=== PATIENT | male | born 1950 | race Caucasian/White ===

== ENCOUNTER → 2018-06-15 10:45 | Outpatient (CLI) | payer MEDICARE, OTHER, SELFPAY ==
[2018-06-15 12:24] LABS: Absolute Lymphocyte Count 1.63 X10^3/ul (0.83-4.51); Absolute Neutrophil Count 3.6 X10^3/uL (2.0-7.7); Basophil# 0.01 X10^3/uL; Basophil% 0.2 % (0-1); Eosinophils% 3.5 % (0-5); Hematocrit 46.7 % (40-54); Hemoglobin 15.7 g/dl (13.0-16.5); Lymphocyte # 1.63 X10^3/ul (4.0); Lymphocyte % 28.2 % (19-41); Mean Corp Hgb Conc 33.6 g/gl (32-36); Mean Corpuscular Hgb 31.7 pg (27.0-32.0); Mean Corpuscular Volume 94.2 fL (80-94); Mean Platelet Vol. 10.8 fl (6.2-12.0); Monocyte# 0.28 X10^3/uL; Monocyte% 4.9 % (0-10); Neutrophil # 3.64 X10^3/uL (2.7-7.7); Platelet Count 182 K/mm3 (150-450); RBC Distribution Width CV 13.9 % (11.6-14.6); RBC Distribution Width SD 47.5 fl (35.1-43.9); Red Blood Count 4.96 M/mm3 (4.6-6.2); White Blood Count 5.8 K/mm3 (4.4-11.0)
[2018-06-15 12:31] LABS: POSITIVE COUNT NO; POSITIVE DIFFERENTIAL NO; POSITIVE MORPHOLOGY NO
[2018-06-15 12:58] LABS: Vitamin B12 1128 pg/mL (211-911); Vitamin D,25 Hydroxy 51.3 ng/mL (29.95-100.01)
[2018-06-15 13:13] LABS: ALB/GLOB Ratio 0.9 RATIO (0.9-2.4); AST(SGOT) 25 U/L (15-37); Alanine Aminotransfer ALT/SGPT 47 U/L (16-61); Albumin, Serum 3.7 g/dL (3.2-5.0); Alkaline Phosphatase 59 U/L (45-117); Anion Gap 5 (5-15); BUN 25 mg/dL (7-18); BUN/Creat Ratio 31.1 RATIO (10-20); Calcium,Total 8.7 mg/dL (8.5-10.1); Chloride 106 mmol/L (98-107); Cholesterol 209 mg/dL (200); EST Glomerular Filtration Rate 102 mL/min (>60); Est Glom Filt Rate - Afr Amer 123 mL/min (>60); Globulin 3.9 g/dL (2.2-4.2); Glucose 93 mg/dL (74-106); High Density Lipoprotein 62 mg/dL; Potassium 4.3 mmol/L (3.5-5.1); Protein, Total 7.6 g/dL (6.4-8.2); Sodium Level 138 mmol/L (136-145); T4 Free Direct 1.02 ng/dL (0.76-1.46); Thyroid Stim Hormone (TSH) 2.02 uIU/mL (0.358-3.74); Triglycerides 61 mg/dL; Very Low Density Lipoprotein 12 mg/dL (5-40)
[2018-06-20 10:19] LABS: Anti-Thyroglobulin AB < 1.0 IU/mL (0.0-0.9); Thyroglobulin, Serum Qt. 6.6 ng/mL (1.4-29.2); Thyroid Peroxidase AB 6 IU/mL (0-34); Vitamin B1, Thiamine 126.7 nmol/L (66.5-200.0)
== END ==
PROVIDERS: Family Provider Family Medicine; PCP Family Medicine; Visit Provider Family Medicine
DX: E03.9 Hypothyroidism, unspecified (principal); E53.9 Vitamin B deficiency, unspecified; E55.9 Vitamin D deficiency, unspecified
CPT/HCPCS: 36415; 80053; 80061; 82306; 82607; 84425; 84432; 84439; 84443; 85025; 86376; 86800

== ENCOUNTER → 2018-06-26 09:55 | Outpatient (CLI) | payer MEDICARE, OTHER, SELFPAY ==
[2018-06-26 13:08] LABS: AST(SGOT) 20 U/L (15-37); Alanine Aminotransfer ALT/SGPT 45 U/L (16-61); Albumin, Serum 3.5 g/dL (3.2-5.0); Alkaline Phosphatase 54 U/L (45-117); Bilirubin, Direct 0.14 mg/dL (0.00-0.30); Globulin 3.4 g/dL (2.2-4.2); Protein, Total 6.9 g/dL (6.4-8.2)
== END ==
PROVIDERS: Family Provider Family Medicine; PCP Family Medicine; Visit Provider Family Medicine
DX: E80.6 Other disorders of bilirubin metabolism (principal)
CPT/HCPCS: 36415; 80076

== ENCOUNTER → 2018-07-27 10:03 | Outpatient (CLI) | payer MEDICARE, OTHER, SELFPAY ==
[2018-07-27 12:26] LABS: PSA,Total - Annual Screen 4.39 ng/mL (0.00-4.00)
== END ==
PROVIDERS: Family Provider Family Medicine; PCP Family Medicine; Visit Provider Family Medicine
DX: Z12.5 Encounter for screening for malignant neoplasm of prostate (principal)
CPT/HCPCS: 36415; 84153; G0103

== ENCOUNTER → 2019-01-21 10:28 | Outpatient (CLI) | payer MEDICARE, OTHER, SELFPAY ==
[2019-01-21 13:17] LABS: T4 Free Direct 1.09 ng/dL (0.76-1.46); Thyroid Stim Hormone (TSH) 2.79 uIU/mL (0.358-3.74)
[2019-01-21 13:25] LABS: Vitamin B12 931 pg/mL (211-911); Vitamin D,25 Hydroxy 40.8 ng/mL (29.95-100.01)
[2019-01-24 15:37] LABS: Vitamin B1, Thiamine 142.2 nmol/L (66.5-200.0)
== END ==
PROVIDERS: Family Provider Family Medicine; PCP Family Medicine; Referring Provider Family Medicine; Visit Provider Family Medicine
DX: E03.9 Hypothyroidism, unspecified (principal); E55.9 Vitamin D deficiency, unspecified; E53.9 Vitamin B deficiency, unspecified
CPT/HCPCS: 36415; 82306; 82607; 84425; 84439; 84443

== ENCOUNTER → 2019-02-13 08:28 | Outpatient (CLI) | payer MEDICARE, OTHER, SELFPAY ==
[2019-02-13 10:34] LABS: AST(SGOT) 21 U/L (15-37); Alanine Aminotransfer ALT/SGPT 47 U/L (16-61); Albumin, Serum 3.3 g/dL (3.2-5.0); Alkaline Phosphatase 57 U/L (45-117); Bilirubin, Direct 0.11 mg/dL (0.00-0.30); Globulin 3.4 g/dL (2.2-4.2); PSA,Total- Diagnostic 4.83 ng/mL (0.0-4.0); Protein, Total 6.7 g/dL (6.4-8.2)
== END ==
PROVIDERS: Family Provider Family Medicine; PCP Family Medicine; Visit Provider Nurse Practitioner Adult Health
DX: R97.20 Elevated prostate specific antigen [PSA] (principal); Z51.81 Encounter for therapeutic drug level monitoring
CPT/HCPCS: 36415; 80076; 84153

== ENCOUNTER → 2019-02-21 14:53 | Outpatient (CLI) | payer MEDICARE, OTHER, SELFPAY ==
--- NOTE | 2019-02-21 15:00 | RAD_ITS ---
STUDY: X-RAY CHEST REASON FOR EXAM: Male, 68 years old. Cough. TECHNIQUE: Frontal and lateral views of the chest. COMPARISON: None. FINDINGS: The lungs are clear and expanded. There is no demonstrated pleural abnormality. Normal size heart. Normal mediastinum and tessa. Normal visualized pulmonary arteries. Normal visualized aortic arch and descending thoracic aorta. There are diffuse degenerative changes of the visualized thoracic spine. Normal visualized ribs, clavicles, and shoulders. There is no demonstrated abnormality of the visualized soft tissue structures of the upper abdomen. RAD/Chest PA and Lateral IMPRESSION: No acute chest disease. Electronically Signed: Ovi Roach MD at 22:59 EDT , Service support ,
== END ==
PROVIDERS: Family Provider Family Medicine; PCP Family Medicine; Referring Provider Family Medicine; Visit Provider Family Medicine
DX: J18.9 Pneumonia, unspecified organism (principal)
CPT/HCPCS: 71046

== ENCOUNTER → 2019-04-22 09:11 | Outpatient (CLI) | payer MEDICARE, OTHER, SELFPAY ==
[2019-04-22 10:47] LABS: T4 Free Direct 0.99 ng/dL (0.76-1.46); Thyroid Stim Hormone (TSH) 3.13 uIU/mL (0.358-3.74)
== END ==
PROVIDERS: Family Provider Family Medicine; PCP Family Medicine; Visit Provider Family Medicine
DX: E03.9 Hypothyroidism, unspecified (principal)
CPT/HCPCS: 36415; 84439; 84443

== ENCOUNTER → 2019-08-20 10:47 | Outpatient (CLI) | payer MEDICARE, OTHER, SELFPAY ==
[2019-08-20 12:49] LABS: PSA,Total- Diagnostic 4.49 ng/mL (0.0-4.0)
== END ==
PROVIDERS: Family Provider Family Medicine; PCP Family Medicine; Visit Provider Nurse Practitioner Adult Health
DX: R97.20 Elevated prostate specific antigen [PSA] (principal)
CPT/HCPCS: 36415; 84153

== ENCOUNTER → 2019-09-11 12:09 | Outpatient (CLI) | payer MEDICARE, OTHER, SELFPAY ==
[2019-09-12 15:13] LABS: PSA, Free 0.95 ng/mL; PSA, Free % 20.2 % (.); PSA, Total Ultrasensitive 4.7 ng/mL (0.0-4.0)
== END ==
PROVIDERS: Family Provider Family Medicine; PCP Family Medicine; Visit Provider Nurse Practitioner Adult Health
DX: R97.20 Elevated prostate specific antigen [PSA] (principal)
CPT/HCPCS: 84153; 84154

== ENCOUNTER → 2019-10-14 08:21 | Outpatient (CLI) | payer MEDICARE, OTHER, SELFPAY ==
[2019-10-14 10:28] LABS: Vitamin B12 1071 pg/mL (211-911); Vitamin D,25 Hydroxy 49.1 ng/mL
[2019-10-14 10:37] LABS: Thyroid Stim Hormone (TSH) 5.99 uIU/mL (0.358-3.74)
[2019-10-18 11:53] LABS: Vitamin B1, Thiamine 122.6 nmol/L (66.5-200.0)
== END ==
PROVIDERS: PCP Family Medicine; Referring Provider Family Medicine; Visit Provider Family Medicine
DX: E53.9 Vitamin B deficiency, unspecified (principal); E03.9 Hypothyroidism, unspecified; E55.9 Vitamin D deficiency, unspecified
CPT/HCPCS: 36415; 82306; 82607; 84425; 84443

== ENCOUNTER → 2020-01-13 08:54 | Outpatient (CLI) | payer MEDICARE, OTHER, SELFPAY ==
[2020-01-13 12:38] LABS: T4 Free Direct 0.86 ng/dL (0.76-1.46); Thyroid Stim Hormone (TSH) 3.38 uIU/mL (0.358-3.74)
[2020-01-15 05:33] LABS: Thyroglobulin Antibody < 1.0 IU/mL (0.0-0.9); Thyroid Peroxidase AB < 9 IU/mL (0-34)
== END ==
PROVIDERS: PCP Family Medicine; Referring Provider Family Medicine; Visit Provider Family Medicine
DX: E03.9 Hypothyroidism, unspecified (principal)
CPT/HCPCS: 36415; 84439; 84443; 86376; 86800

== ENCOUNTER → 2020-07-13 08:48 | Outpatient (CLI) | payer MEDICARE, OTHER, SELFPAY ==
[2020-07-13 11:13] LABS: Thyroid Stim Hormone (TSH) 3.98 uIU/mL (0.358-3.74)
[2020-07-13 11:30] LABS: Vitamin B12 797 pg/mL (211-911); Vitamin D,25 Hydroxy 51.3 ng/mL
== END ==
PROVIDERS: PCP Family Medicine; Referring Provider Family Medicine; Visit Provider Family Medicine
DX: E03.9 Hypothyroidism, unspecified (principal); E53.9 Vitamin B deficiency, unspecified; E55.9 Vitamin D deficiency, unspecified
CPT/HCPCS: 36415; 82306; 82607; 84425; 84439; 84443

== ENCOUNTER 2020-10-15 14:42 | Outpatient (RCR) | payer MEDICARE, OTHER, SELFPAY ==
[2020-10-15] MEDS: COVID-19 VACC, MRNA(PFIZER)/PF 30 MCG/0.3 ML SYRINGE IM (18:01)
[2020-11-05] MEDS: COVID-19 VACC, MRNA(PFIZER)/PF 30 MCG/0.3 ML SYRINGE IM (17:51)
== END 2021-01-12 23:59 ==
LOC: IMMUN 14:42
PROVIDERS: PCP Family Medicine; Referring Provider Family Medicine; Visit Provider Family Medicine
DX: Z23 Encounter for immunization (principal)
CPT/HCPCS: 0001A; 0002A; 91300

== ENCOUNTER → 2021-01-22 10:20 | Outpatient (CLI) | payer MEDICARE, OTHER, SELFPAY ==
[2021-01-22 15:33] LABS: Vitamin B12 1037 pg/mL (211-911); Vitamin D,25 Hydroxy 69.2 ng/mL
[2021-01-22 15:42] LABS: T4 Free Direct 0.89 ng/dL (0.76-1.46); Thyroid Stim Hormone (TSH) 2.36 uIU/mL (0.358-3.74)
== END ==
PROVIDERS: PCP Family Medicine; Referring Provider Family Medicine; Visit Provider Family Medicine
DX: E03.9 Hypothyroidism, unspecified (principal); E55.9 Vitamin D deficiency, unspecified; E53.9 Vitamin B deficiency, unspecified
CPT/HCPCS: 36415; 82306; 82607; 84439; 84443

== ENCOUNTER 2021-08-17 09:31 | Outpatient (CLI) | payer BC, SELFPAY ==
[2021-08-17 10:06] LABS: Absolute Lymphocyte Count 1.35 X10^3/uL (0.83-4.51); Absolute Neutrophil Count 6.1 X10^3/uL (2.0-7.7); Basophil# 0.03 X10^3/uL; Basophil% 0.4 % (0-1); Eosinophil# 0.33 X10^3/uL; Hematocrit 44.6 % (40-54); Hemoglobin 14.9 g/dL (13.0-16.5); Lymphocyte # 1.35 X10^3/ul (0.83-4.51); Lymphocyte % 16.2 % (19-41); Mean Corp Hgb Conc 33.4 g/dL (32-36); Mean Corpuscular Hgb 30.8 pg (27.0-32.0); Mean Corpuscular Volume 92.1 fL (80-94); Mean Platelet Vol. 10.3 fl (6.2-12.0); Monocyte# 0.46 X10^3/uL; Monocyte% 5.5 % (0-10); NRBC Flagged by Analyzer 0 % (0-5); Neutrophil # 6.13 X10^3/uL (2.7-7.7); Neutrophil % 73.5 % (47-70); Platelet Count 223 K/mm3 (150-450); RBC Distribution Width CV 13.1 % (11.6-14.6); RBC Distribution Width SD 44.2 fl (35.1-43.9); Red Blood Count 4.84 M/mm3 (4.6-6.2); White Blood Count 8.3 K/mm3 (4.4-11.0)
[2021-08-17 10:43] LABS: Vitamin B12 1249 pg/mL (211-911); Vitamin D,25 Hydroxy 54.1 ng/mL
[2021-08-17 10:49] LABS: ALB/GLOB Ratio 0.7 RATIO (0.9-2.4); AST(SGOT) 20 U/L (15-37); Alanine Aminotransfer ALT/SGPT 40 U/L (16-61); Alkaline Phosphatase 74 U/L (45-117); Anion Gap 5 (5-15); BUN 28 mg/dL (7-18); BUN/Creat Ratio 32.7 RATIO (10-20); Calcium,Total 8.9 mg/dL (8.5-10.1); Chloride 110 mmol/L (98-107); Creatinine, Serum 0.86 mg/dL (0.70-1.30); EST Glomerular Filtration Rate 94 mL/min (>60); Est Glom Filt Rate - Afr Amer 114 mL/min (>60); Globulin 4.3 g/dL (2.2-4.2); Glucose 103 mg/dL (74-106); Potassium 4.2 mmol/L (3.5-5.1); Protein, Total 7.3 g/dL (6.4-8.2); Sodium Level 140 mmol/L (136-145); Thyroid Stim Hormone (TSH) 3.71 uIU/mL (0.358-3.74)
[2021-08-18 18:06] LABS: Anti-Thyroglobulin AB < 1.0 IU/mL (0.0-0.9); Thyroglobulin, Serum Qt. 10.5 ng/mL (1.4-29.2); Thyroid Peroxidase AB < 8 IU/mL (0-34)
== END 2021-08-17 23:59 | disposition home or self-care (01) ==
LOC: MFPLAB 09:33
PROVIDERS: PCP Family Medicine; Referring Provider Family Medicine; Visit Provider Family Medicine
DX: E03.9 Hypothyroidism, unspecified (principal); E53.9 Vitamin B deficiency, unspecified; E55.9 Vitamin D deficiency, unspecified
CPT/HCPCS: 36415; 80053; 82306; 82607; 84432; 84439; 84443; 85025; 86376; 86800

== ENCOUNTER 2021-09-24 14:04 | Outpatient (CLI) | payer BC, SELFPAY ==
--- NOTE | 2021-09-24 14:07 | RAD_ITS ---
EXAM: XR ABDOMEN, 2 VIEWS AND XR CHEST, 1 VIEW CLINICAL INDICATION: ABDOMINAL PAIN TECHNIQUE: Frontal view of the chest, frontal view of the abdomen/pelvis and upright or decubitus view of the abdomen. This report was created using [employer] report [employer] technology. COMPARISON: None. FINDINGS: CHEST: LUNGS AND PLEURAL SPACES: Unremarkable. No consolidation or edema. No pneumothorax. No effusion. HEART: Unremarkable. Cardiac silhouette not enlarged. MEDIASTINUM: Central airways and mediastinal contour are unremarkable. ABDOMEN: INTRAPERITONEAL SPACE: No free air. GASTROINTESTINAL TRACT: Unremarkable. Non-obstructive. No bowel or stomach distention. ORGANS: Calcification overlying the left renal parenchymal outline may be a left renal stone. This measures 3 mm. There are calcified phleboliths in the pelvis. This makes differentiation with distal ureteral stones difficult. No organomegaly. TUBES, LINES AND DEVICES: None. BONES/JOINTS: Degenerative findings in the lumbar spine. Degenerative findings of the hips. SOFT TISSUES: No acute findings. RAD/Acute Abdomen Inc Chest IMPRESSION: Calcification overlying the left renal parenchymal outline may be a left renal stone. This measures 3 mm. Electronically Signed: Kishor Harrison MD at 22:05 EST Reading Location ID and State: [facility] / [place] , Service support ,
== END 2021-09-24 23:59 | disposition home or self-care (01) ==
LOC: MTRAD 14:05
PROVIDERS: PCP Family Medicine; Referring Provider Family Medicine; Visit Provider Family Medicine
DX: R10.9 Unspecified abdominal pain (principal)
CPT/HCPCS: 74022

== ENCOUNTER → 2022-02-24 | Outpatient (CLI) | payer BC, SELFPAY ==
[2022-02-24 10:31] LABS: AST(SGOT) 22 U/L (15-37); Alanine Aminotransfer ALT/SGPT 48 U/L (16-61); Albumin, Serum 3.3 g/dL (3.2-5.0); Alkaline Phosphatase 54 U/L (45-117); Anion Gap 3 (5-15); BUN 23 mg/dL (7-18); BUN/Creat Ratio 32.5 RATIO (10-20); Calcium,Total 8.4 mg/dL (8.5-10.1); Chloride 111 mmol/L (98-107); Creatinine, Serum 0.71 mg/dL (0.70-1.30); EST Glomerular Filtration Rate 117 mL/min (>60); Est Glom Filt Rate - Afr Amer 141 mL/min (>60); Globulin 3.4 g/dL (2.2-4.2); Glucose 99 mg/dL (74-106); Potassium 4.2 mmol/L (3.5-5.1); Protein, Total 6.7 g/dL (6.4-8.2); Sodium Level 139 mmol/L (136-145); Vitamin B12 824 pg/mL (211-911); Vitamin D,25 Hydroxy 66.6 ng/mL
[2022-02-24 10:59] LABS: PSA,Total- Diagnostic 4.77 ng/mL (0.0-4.0)
== END | disposition home or self-care (01) ==
PROVIDERS: PCP Family Medicine; Referring Provider Family Medicine; Visit Provider Family Medicine
DX: R97.20 Elevated prostate specific antigen [PSA] (principal)
CPT/HCPCS: 36415; 80053; 82306; 82607; 84153

== ENCOUNTER 2022-03-11 15:04 | Outpatient (CLI) | payer BC, SELFPAY ==
--- NOTE | 2022-03-11 | MISC_PTH ---
PATIENT: KRANTHI DELVALLE LOC: [place] U#:[id number] AGE/SX: 71/M ROOM: RE03/11/[address]: Dr. Elvis Bender MD : 1950 BED: DIS: 03/11/2022 SPEC #: [id number] RECD: 03/11/22 08:36 STATUS: ALLY GARCIA #: [id number] KARSON: 03/11/22 00:[address]: Elvis Bender DEPT: SURGICAL PATHOLOGY RECD BY: Roger Shukla ENTERED: 03/14/22 08:37 SP TYPE: [place] OTHR DR: Dr. Omar Leonard MD Tissues: Oral cavity, NOS Procedures: Special Stain Group I Surgery Specimen Level IV GMS Stain (control) HEADER OPERATION: Right gingiva biopsy PRE-OP DIAGNOSIS: Oral cavity mass TISSUE SUBMITTED: Right gingiva MICROSCOPIC DIAGNOSIS Right gingiva, biopsy: A fragment of squamous mucosa with acute and chronic inflammation and granulation tissue reaction. Negative for malignancy. See comment. PRASAD:danette 03/15/2022 COMMENT Special stain for fungi is negative for organisms; matched control is appropriate. If there is high suspicion of malignancy, re-biopsy is suggested if clinically indicated. Correlation with clinical findings and appropriate follow up are necessary. MICROSCOPIC DESCRIPTION Slides are reviewed. GROSS DESCRIPTION Received in fixative is one container labeled with the patient's name and designated right gingiva. The specimen consists of a fragment of chery mucosal tissue measuring 0.3 x 0.2 x 0.1 cm. The specimen is totally submitted in one cassette. / PRASAD:danette 03/14/2022 TC:2 CPT: 28865, 39903
== END 2022-03-11 23:59 | disposition home or self-care (01) ==
LOC: LABSPEC 15:05
PROVIDERS: PCP Family Medicine; Visit Provider Otolaryngology
DX: K13.70 Unspecified lesions of oral mucosa (principal)
CPT/HCPCS: 88305; 88312

== ENCOUNTER → 2022-09-13 | Outpatient (CLI) | payer BC, SELFPAY | END | disposition home or self-care (01) | LOC: MFPLAB 09:51 | PROVIDERS: PCP Family Medicine; Referring Provider Family Medicine; Visit Provider Family Medicine | DX: R69 Illness, unspecified (principal) ==

== ENCOUNTER → 2023-02-28 | Outpatient (CLI) | payer BC, SELFPAY | END | disposition home or self-care (01) | LOC: MFPLAB 08:33 | PROVIDERS: PCP Family Medicine; Visit Provider Family Medicine | DX: R69 Illness, unspecified (principal) ==

== ENCOUNTER → 2023-03-03 | Outpatient (CLI) | payer BC, SELFPAY ==
[2023-03-03 10:02] LABS: Absolute Lymphocyte Count 1.31 X10^3/uL (0.83-4.51); Absolute Neutrophil Count 3.5 X10^3/uL (2.0-7.7); Basophil# 0.03 X10^3/uL; Basophil% 0.5 % (0-1); Eosinophil# 0.34 X10^3/uL; Eosinophils% 6.2 % (0-5); Hemoglobin 15.1 g/dL (13.0-16.5); Lymphocyte # 1.31 X10^3/ul (0.83-4.51); Lymphocyte % 23.7 % (19-41); Mean Corp Hgb Conc 32.8 g/dL (32-36); Mean Corpuscular Hgb 31.1 pg (27.0-32.0); Mean Corpuscular Volume 94.7 fL (80-94); Mean Platelet Vol. 10.4 fl (6.2-12.0); Monocyte# 0.34 X10^3/uL; Monocyte% 6.2 % (0-10); NRBC Flagged by Analyzer 0 % (0-5); Neutrophil # 3.49 X10^3/uL (2.7-7.7); Neutrophil % 63.2 % (47-70); Platelet Count 152 K/mm3 (150-450); RBC Distribution Width CV 13.9 % (11.6-14.6); RBC Distribution Width SD 48.2 fl (35.1-43.9); Red Blood Count 4.86 M/mm3 (4.6-6.2); White Blood Count 5.5 K/mm3 (4.4-11.0)
[2023-03-03 10:24] LABS: ALB/GLOB Ratio 0.9 RATIO (0.9-2.4); AST(SGOT) 21 U/L (15-37); Alanine Aminotransfer ALT/SGPT 39 U/L (16-61); Alkaline Phosphatase 53 U/L (45-117); Anion Gap 7 (5-15); BUN 28 mg/dL (7-18); BUN/Creat Ratio 39.1 RATIO (10-20); Calcium,Total 8.2 mg/dL (8.5-10.1); Chloride 113 mmol/L (98-107); Cholesterol 180 mg/dL (200); Creatinine, Serum 0.72 mg/dL (0.70-1.30); EST Glomerular Filtration Rate 115 mL/min (>60); Est Glom Filt Rate - Afr Amer 139 mL/min (>60); Globulin 3.3 g/dL (2.2-4.2); Glucose 135 mg/dL (74-106); High Density Lipoprotein 55 mg/dL; Potassium 3.7 mmol/L (3.5-5.1); Protein, Total 6.3 g/dL (6.4-8.2); Sodium Level 143 mmol/L (136-145); Triglycerides 100 mg/dL; Very Low Density Lipoprotein 20 mg/dL (5-40)
[2023-03-03 10:27] LABS: Vitamin B12 851 pg/mL (211-911); Vitamin D,25 Hydroxy 77.4 ng/mL
[2023-03-13 03:06] LABS: VITAMIN B6 32.4 ug/L (3.4-65.2); Vitamin B1, Thiamine 174.9 nmol/L (66.5-200.0)
== END | disposition home or self-care (01) ==
LOC: MFPLAB 09:14
PROVIDERS: PCP Family Medicine; Visit Provider Family Medicine
DX: Z00.00 Encounter for general adult medical examination without abnormal findings (principal); E53.9 Vitamin B deficiency, unspecified; E55.9 Vitamin D deficiency, unspecified
CPT/HCPCS: 80053; 80061; 82306; 82607; 84207; 84425; 85025

== ENCOUNTER → 2023-08-15 | Outpatient (CLI) | payer BC, SELFPAY ==
--- NOTE | 2023-08-15 13:58 | RAD_ITS ---
INDICATION: acute bronchitis EXAMINATION/TECHNIQUE: X-RAY - XR Chest 2 Views COMPARISON: Prior study dated: 02/21/2019 FINDINGS: LINES/DEVICES: None. LUNGS: No consolidation, edema or effusion. No pneumothorax. MEDIASTINUM AND CARDIOVASCULAR STRUCTURES: Cardiac silhouette not enlarged. Central airways and mediastinal contour are unremarkable. BONES AND SOFT TISSUES: Mild degenerative changes of the thoracic spine. RAD/Chest PA and Lateral IMPRESSION: No radiographic evidence of acute cardiopulmonary disease. Electronically Signed: Scott Nolasco MD at 14:18 EST ,
--- OUTSIDE RECORDS SUMMARY | 2023-08-15 15:40 | XMS RPT_ITS | CCD ---
Author Name Unknown Address [address] [place] [address] Organization [facility] Care Team Providers Care Alcohol Still Operator Name Role Phone Deanna Leonard Primary Care Provider [phone] GILLES CALZADA Referring Unavail DEANNA Black Primary Care UnavailDeanna Hatfield Primary Care Provider GILLES CALZADA Attending Unavail DEANNA Black Referring UnavailDEANNA Hatfield Primary Care Unavailabl e Medications Completed/Discontinued Medications Medication Drug Class(es) Dates Sig (Normalized) Sig (Original) ascorbic acid 500 mg oral tablet (4 sources) Vitamin C Start: 04-03-2006 VITAMIN C 500 MG TAB Take one(1) tablet daily. 0 04/03/2006 Active Problems Active Problems Problem Classification Problem Date Documented Da te Episodic/Chronic Disorders of lipid metabolism (4 sources) Hypercholesterole bradly; Translations: [Pure hypercholesterole bradly, unspecified] Onset: 01-02-2018 01-02-2018 Chronic Other male genital disorders (5 sources) Male erectile dysfunction, unspecified; Translations: [Impotence of organic origin] Onset: 12-31-2014 12-31-2014 Chronic Other male genital disorders (1 source) Secondary erectile dysfunction; Translations: [Male erectile dysfunction, unspecified] 03-02-2023 Chronic Other screening for suspected conditions (not mental disorders or infectious disease) (8 sources) Raised prostate specific antigen; Translations: [Elevated prostate specific antigen [PSA]] Onset: 03-01-2023 Episodic Residual codes; unclassified (1 source) Family history of prostate cancer; Translations: [Family history of malignant neoplasm of prostate] 03-02-2023 Episodic Residual codes; unclassified (1 source) Family history of malignant neoplasm of prostate; Translations: [Family history of prostate cancer in father] Onset: 03-02-2023 Episodic Thyroid disorders (4 sources) Hypothyroidism; Translations: [Hypothyroidism, unspecified] Onset: 11-12-2013 08-02-2021 Chronic Past or Other Problems Problem Classification Problem Date Documented Da te Episodic/Chronic Other and unspecified benign neoplasm (4 sources) Lipoma of lower back; Translations: [Benign lipomatous neoplasm of skin and subcutaneous tissue of trunk] Onset: 01-02-2018 01-02-2018 Episodic Results Test Name Value Interpretation Reference Range Facil ity Vital Signs Date Time Vital Sign Value Performing Clinician Keysha littrini 03-02-2023 13:28-0400 Diastolic blood pressure 90 mm[Hg] Gilles Calzada MD Work Phone: [facility] 03-02-2023 13:28-0400 Heart rate 65 /min Gilles Calzada MD Work Phone: [facility] 03-02-2023 13:28-0400 SaO2% (BldA) [Mass fraction] 94 % Gilles Calzada MD Work Phone: [facility] 03-02-2023 13:28-0400 Systolic blood pressure 140 mm[Hg] Gilles Calzada MD Work Phone: [facility] 03-01-2022 15:37-0400 Diastolic blood pressure 76 mm[Hg] Gilles Calzada MD Work Phone: [facility] 03-01-2022 15:37-0400 Heart rate 45 /min Gilles Calzada MD Work Phone: [facility] 03-01-2022 15:37-0400 SaO2% (BldA) [Mass fraction] 96 % Gilles Calzada MD Work Phone: [facility] 03-01-2022 15:37-0400 Systolic blood pressure 124 mm[Hg] Gilles Calzada MD Work Phone: [facility] Encounters Encounter Date Encounter Type Care Provider Facility Start: 03-02-2023 End: 03-02-2023 ambulatory GILLES CALZADA Facility:[facility]: 03-02-2023 End: 03-02-2023 Patient encounter procedure Gilles Calzada MD Work Phone: Urology Procedures Date Procedure Procedure Detail Performing Clinician Start: 03-02-2023 End: 03-02-2023 Britni post-voiding residual urine&/bladder cap Gilles Calzada MD Work Phone: Start: 03-01-2022 Britni post-voiding re sidual urine&/bladder cap Gilles Calzada MD Work Phone: Start: 02-25-2022 PSA screening Gilles benitez MD Work Phone: Start: 02-24-2022 CREATININE BLD [facility] Prov ider Start: 02-24-2022 PSA screening [facility] Provi twan Start: 01-02-2018 Adult depression scr eening assessment Gilles Calzada MD Work Phone: Start: 07-18-2016 Colonoscopy Gilles saenz MD Work Phone: Plan of Treatment Date Care Activity Detail Author Start: 07-18-2026 Colonoscopy COLONOSCOPY [facility] Start: 07-18-2026 COLORECTAL CANCER SCREENING COLORECTAL CANCER SCREENING [facility] Start: 12-14-2025 Urine microalbumin profile DTAP,TDAP,TD (2 - Td or Tdap) [facility] Start: 03-02-2024 End: 03-02-2024 PSA/PROSTSPECAG SCRN PSA/PROSTSPECAG SCRN Lab Routine Screening PSA (prostate specific antigen) Expected: 03/02/2024 (Approximate), Expires: 03/02/2024 [facility] Work Phone: Immunizations Immunization Date Immunization Notes Care Provider Fa cility 01-02-2018 pneumococcal polysaccharide vaccine, 23 valent Gilles Calzada MD Work Phone: [facility] Work Phone: 12-15-2016 pneumococcal conjuga te vaccine, 13 valent Gilles Calzada MD Work Phone: [facility] 12-15-2015 tetanus toxoid, redu nina diphtheria toxoid, and acellular pertussis vaccine, adsorbed Gilles Calzada MD Work Phone: [facility] 05-21-2015 influenza, seasonal, injectable Gilles Calzada MD Work Phone: [facility] 06-26-2014 zoster vaccine, live Gilles nath MD Work Phone: [facility] 04-21-2013 influenza virus vacc ine, unspecified formulation Gilles Calzada MD Work Phone: [facility] 04-03-2006 tetanus and diphther ia toxoids, adsorbed, preservative free, for adult use (2 Lf of tetanus toxoid and 2 Lf of diphtheria toxoid) Gilles Calzada MD Work Phone: [facility] Work Phone: Payers Date Payer Category Payer Medicare [id number] 2022 Private Health Insurance [employer] A ETNA MEDICARE SUPPLEMENT [id number] 2022-Present [phone] [address] [address] [place] [address] Indemnity [id number] 2021 Unknown ANTHEM BLUE CROS S AND BLUE SHIELD ANTHEM MEDIBLUE O [id number] 2021-Present [phone] [address] [place] [address] O [id number] 2021 Unknown [id number] 2021 Unknown ANTHEM BLUE CROS S AND BLUE SHIELD ANTHEM MEDIBLUE HMO [id number] 2021-Present [phone] [address] [place] [address] O [id number] 2016 Medicare MEDICARE MEDICAR E A AND B [id number] 2016-Present [phone] [place] [address] Medicare [id number] Social History Date Type Detail Facility Start: 12-15-2016 Tobacco smoking stat us MIIS Never smoked tobacco [facility] Start: 11-19-2020 End: 03-02-2023 Alcohol intake Current non-drinker of alcohol (finding) [facility] Start: 1950 Sex Assigned At Not on file C [facility] Start: 12-15-2016 Tobacco use and exposure Smokeless tobacco non-user [facility] Work Phone: Start: 09-02-2022 End: 03-02-2023 History of Social function [facility] Start: 09-02-2022 End: 03-02-2023 Tobacco use panel [facility] Adult Depression Screening Assessment 0 [facility] Clinical Notes 12-31-2014 to 03-02-2023 Gilles Calzada MD - 03/02/2023 1:19 PM EDTPatient Aretha Calzada MD - 03/01/2022 3:31 PM EDTTelephone Encounter - Gracy Gates [facility] - 02/24/2022 9:05 AM EDT Note Date & Type Note Facility 03-02-2023 Note HNO ID: [id number] Author: Gilles Calzada MD Service: ? Author Type: Physician Type: Progress Notes Filed: 03/02/2023 2:17 PM Note Text: [facility] [place] ESTABLISHED PATIENT OFFICE VISIT HISTORY OF PRESENT ILLNESS Munir Gonzalez is a 72 year old male who presents with fam hx prostate cancer - father/uncle. LUTS are mild still. Saw palmetto did not help. Occasional urgency. Nocturia 1x-2. Stream is slightly weak. No hematuria, No UTIs. says he pees too much . (Every couple hours). Erections are nothing to set the world on fire. Patient Entered Questionnaires PROMIS Global Health Percentiles provide an indication of how the patient's score ranks in relation to the general population. Higher percentile rankings indicate better function/quality of life. 50th percentile is the average of the general population and indicates half of respondents had a worse score. Review of Systems Constitutional: Negative. HENT: Negative. Eyes: Negative. Respiratory: Negative. Cardiovascular: Negative. Gastrointestinal: Negative. Endocrine: Negative. Genitourinary: Negative. Musculoskeletal: Negative. Skin: Negative. Allergic/Immunologic: Negative. Neurological: Negative. Hematological: Negative. Psychiatric/Behavioral: Negative. The remainder of the ROS was reviewed and is negative. LAB Creatinine Date Value Ref Range Status 02/24/2022 0.71 1.5 MG/DL Final PSA Date Value 02/24/2022 4.77 11/20/2020 6.50 ng/mL 09/07/2019 4.7 08/07/2019 4.49 02/04/2019 4.83 07/07/2018 4.39 11/06/2015 3.11 11/05/2014 3.18 10/05/2013 3.16 10/05/2013 3.16 PSA Screening (ng/mL) Date Value 03/01/2023 4.41 GLUCOSE UA (POCT) Negative 11/19/2020 BILIRUBIN UA (POCT) Negative 11/19/2020 KETONE UA (POCT) Negative 11/19/2020 SPECIFIC GRAVITY UA (POCT) >=1.030 11/19/2020 HEMOGLOBIN/BLOOD UA (POCT) Trace-intact 11/19/2020 PH UA (POCT) 6.5 11/19/2020 PROTEIN UA (POCT) Negative 11/19/2020 UROBILINOGEN UA (POCT) 0.2 11/19/2020 NITRITE UA (POCT) Negative 11/19/2020 LEUKOCYTES UA (POCT) Negative 11/19/2020 COLOR UA (POCT) Yellow 11/19/2020 CLARITY UA (POCT) Clear 11/19/2020 MEDICATIONS Tadalafil (CIALIS) 5 mg tablet Take 1 tablet by mouth once daily. meloxicam (MOBIC) 15 mg tablet Take 15 mg by mouth once daily. levothyroxine (SYNTHROID) 25 mcg tablet Take 1 tablet by mouth daily before breakfast. (Patient not taking: Reported on 11/19/2020 ) sildenafil (REVATIO) 20 mg tablet Take 20-40 mg by mouth as needed (30 minutes before if needed for ED). (Patient not taking: Reported on 11/19/2020 ) cyanocobalamin (VITAMIN B-12) 1,000 mcg Tab Take 1 tablet by mouth once daily. Cholecalciferol, Vitamin D3, 1,000 unit ORAL Cap Take 1 capsule by mouth once daily. (Patient taking differently: Take 2,000 Units by mouth once daily. ) ASPIRIN 81 MG TAB Take one (1) tablet daily . VITAMIN C 500 MG TAB Take one(1) tablet daily. THERAPEUTIC MULTIVITAMIN TAB Take one(1) tablet daily. HISTORIES PAST MEDICAL HISTORY Diagnosis Date ED (erectile dysfunction) 12/31/2014 Generalized osteoarthrosis, unspecified site HLD (hyperlipidemia) 11/12/2013 Hypothyroid 11/12/2013 TSH 2.75 - T4 7.3 - [facility] 02/11/2014 Irritable bowel syndrome Stress and adjustment reaction 12/31/2014 PAST SURGICAL HISTORY Procedure Laterality Date COLONOSCOPY 07/18/2016 COLONOSCOPY FLX DX W/COLLJ SPEC WHEN PFRMD 07/10/2006 Colonoscopy EXCISION AXILLARY LYMPH NODE Left 1973 benign PAST SURGICAL HISTORY OF Left 02/2008 cyst left middle finger, thumb RMVL SEC MEMBRANOUS CTRC CORNEO-SCLL SCTJ 06/2009 Cataract removal, left RPR 1ST INGUN HRNA AGE 7 MO-5 YRS REDUCIBLE 1953 SEPTOPLASTY/SUBMUCOUS RESECJ W/WO CARTILAGE GRF 07/2007 Septoplasty FAMILY HISTORY Problem Relation Age of Onset Hypertension Mother Coronary Artery Disease Mother Hypertension Father Heart Father Prostate Cancer Father other (Other) Brother Lyme SOCIAL HISTORY Social History Tobacco Use Smoking status: Never Smokeless tobacco: Never Substance Use Topics Alcohol use: No Drug use: No BP 140/90 Pulse 65 SpO2 94% Physical Exam Genitourinary: Comments: Prostate measures 45 to 55 g no areas of nodularity induration. IMAGING ASSESSMENT/PLAN: 1. Elevated prostate specific antigen (PSA) - ICD9: 790.93, ICD10: R97.20 (primary diagnosis) - US MSR POST-VOID RESID URINE 2. Screening PSA (prostate specific antigen) - ICD9: V76.44, ICD10: Z12.5 - PSA/PROSTSPECAG SCRN 3. Family history of prostate cancer in father - ICD9: V16.42, ICD10: Z80.42 4. ED (erectile dysfunction) of organic origin - ICD9: 607.84, ICD10: N52.9 Would be excellent candidate for daily Cialis as he has both erectile and urinary symptoms. Amenable to trying. Prescription sent in. Discussed side effects. Coupon given. Reviewed PSA. Has stabilized. Continue PSA annually. Benign re (more content not included)... [facility] 03-02-2023 History of Presen t illness Narrative Images from the original note were not included. [facility] [place] ESTABLISHED PATIENT OFFICE VISIT HISTORY OF PRESENT ILLNESS Munir Gonzalez is a 72 year old male who presents with fam hx prostate cancer - father/uncle. LUTS are mild still. Saw palmetto did not help. Occasional urgency. Nocturia 1x-2. Stream is slightly weak. No hematuria, No UTIs. says he pees too much . (Every couple hours). Erections are nothing to set the world on fire. Patient Entered Questionnaires PROMIS Global Health Percentiles provide an indication of how the patient's score ranks in relation to the general population. Higher percentile rankings indicate better function/quality of life. 50th percentile is the average of the general population and indicates half of respondents had a worse score. Review of Systems Constitutional: Negative. HENT: Negative. Eyes: Negative. Respiratory: Negative. Cardiovascular: Negative. Gastrointestinal: Negative. Endocrine: Negative. Genitourinary: Negative. Musculoskeletal: Negative. Skin: Negative. Allergic/Immunologic: Negative. Neurological: Negative. Hematological: Negative. Psychiatric/Behavioral: Negative. The remainder of the ROS was reviewed and is negative. LAB Creatinine Date Value Ref Range Status 02/24/2022 0.71 1.5 MG/DL Final PSA Date Value 02/24/2022 4.77 11/20/2020 6.50 ng/mL 09/07/2019 4.7 08/07/2019 4.49 02/04/2019 4.83 07/07/2018 4.39 11/06/2015 3.11 11/05/2014 3.18 10/05/2013 3.16 10/05/2013 3.16 PSA Screening (ng/mL) Date Value 03/01/2023 4.41 GLUCOSE UA (POCT) Negative 11/19/2020 BILIRUBIN UA (POCT) Negative 11/19/2020 KETONE UA (POCT) Negative 11/19/2020 SPECIFIC GRAVITY UA (POCT) >=1.030 11/19/2020 HEMOGLOBIN/BLOOD UA (POCT) Trace-intact 11/19/2020 PH UA (POCT) 6.5 11/19/2020 PROTEIN UA (POCT) Negative 11/19/2020 UROBILINOGEN UA (POCT) 0.2 11/19/2020 NITRITE UA (POCT) Negative 11/19/2020 LEUKOCYTES UA (POCT) Negative 11/19/2020 COLOR UA (POCT) Yellow 11/19/2020 CLARITY UA (POCT) Clear 11/19/2020 MEDICATIONS Tadalafil (CIALIS) 5 mg tablet Take 1 tablet by mouth once daily. meloxicam (MOBIC) 15 mg tablet Take 15 mg by mouth once daily. levothyroxine (SYNTHROID) 25 mcg tablet Take 1 tablet by mouth daily before breakfast. (Patient not taking: Reported on 11/19/2020 ) sildenafil (REVATIO) 20 mg tablet Take 20-40 mg by mouth as needed (30 minutes before if needed for ED). (Patient not taking: Reported on 11/19/2020 ) cyanocobalamin (VITAMIN B-12) 1,000 mcg Tab Take 1 tablet by mouth once daily. Cholecalciferol, Vitamin D3, 1,000 unit ORAL Cap Take 1 capsule by mouth once daily. (Patient taking differently: Take 2,000 Units by mouth once daily. ) ASPIRIN 81 MG TAB Take one (1) tablet daily . VITAMIN C 500 MG TAB Take one(1) tablet daily. THERAPEUTIC MULTIVITAMIN TAB Take one(1) tablet daily. HISTORIES PAST MEDICAL HISTORY Diagnosis Date ED (erectile dysfunction) 12/31/2014 Generalized osteoarthrosis, unspecified site HLD (hyperlipidemia) 11/12/2013 Hypothyroid 11/12/2013 TSH 2.75 - T4 7.3 - [facility] 02/11/2014 Irritable bowel syndrome Stress and adjustment reaction 12/31/2014 PAST SURGICAL HISTORY Procedure Laterality Date COLONOSCOPY 07/18/2016 COLONOSCOPY FLX DX W/COLLJ SPEC WHEN PFRMD 07/10/2006 Colonoscopy EXCISION AXILLARY LYMPH NODE Left 1972 benign PAST SURGICAL HISTORY OF Left 02/2008 cyst left middle finger, thumb RMVL SEC MEMBRANOUS CTRC CORNEO-SCLL SCTJ 06/2009 Cataract removal, left RPR 1ST INGUN HRNA AGE 7 MO-5 YRS REDUCIBLE 1953 SEPTOPLASTY/SUBMUCOUS RESECJ W/WO CARTILAGE GRF 07/2007 Septoplasty FAMILY HISTORY Problem Relation Age of Onset Hypertension Mother Coronary Artery Disease Mother Hypertension Father Heart Father Prostate Cancer Father other (Other) Brother Lyme SOCIAL HISTORY Social History Tobacco Use Smoking status: Never Smokeless tobacco: Never Substance Use Topics Alcohol use: No Drug use: No BP 140/90 Pulse 65 SpO2 94% Physical Exam Genitourinary: Comments: Prostate measures 45 to 55 g no areas of nodularity induration. IMAGING ASSESSMENT/PLAN: 1. Elevated prostate specific antigen (PSA) - ICD9: 790.93, ICD10: R97.20 (primary diagnosis) - US MSR POST-VOID RESID URINE 2. Screening PSA (prostate specific antigen) - ICD9: V76.44, ICD10: Z12.5 - PSA/PROSTSPECAG SCRN 3. Family history of prostate cancer in father - ICD9: V16.42, ICD10: Z80.42 4. ED (erectile dysfunction) of organic origin - ICD9: 607.84, ICD10: N52.9 Would be excellent candidate for daily Cialis as he has both erectile and urinary symptoms. Amenable to trying. Prescription sent in. Discussed side effects. Coupon given. Reviewed PSA. Has stabilized. Continue PSA annually. Benign rectal exam today. Follow-up in a year. Gilles Calzada Medical Decision Making: Problems: Moderate: 2+ stable chronic illnesses Data: Unique test result(s) reviewed: 1 Unique test(s) ordered: 1 Risk: Moderate: Drug management Medical Decision Making Level: 4 - Moderate This note was partially created using voice recognition software and is inherently subject to errors including those of syntax and sound-alike substitutions which may escape proofreading. In such instances, original meaning may be extrapolated by contextual derivation. documented in this encounter [facility] 03-01-2022 Instructions Gilles Calzada MD - 03/01/2022 4:14 PM EDT It was great to see you today! Try some saw palmetto for your BPH symptoms. We reviewed your PSA and PSA history. Please repeat a PSA again in a year. I'll see you next year. documented in this encounter [facility] 03-01-2022 History of Presen t illness Narrative Images from the original note were not included. [facility] [place] ESTABLISHED PATIENT OFFICE VISIT HISTORY OF PRESENT ILLNESS Munir Gonzalez is a 71 year old male who presents with hx elev psa (no biopsy) and family hx (father) prostate cancer. LUTS are mild. Nocturia 1x/night Stream is fair. Interested in some saw palmetto for now. Patient Entered Questionnaires PROMIS Global Health Percentiles provide an indication of how the patient's score ranks in relation to the general population. Higher percentile rankings indicate better function/quality of life. 50th percentile is the average of the general population and indicates half of respondents had a worse score. Review of Systems Constitutional: Negative. HENT: Negative. Eyes: Negative. Respiratory: Negative. Cardiovascular: Negative. Gastrointestinal: Negative. Endocrine: Negative. Genitourinary: Negative. Musculoskeletal: Negative. Skin: Negative. Allergic/Immunologic: Negative. Neurological: Negative. Hematological: Negative. Psychiatric/Behavioral: Negative. The remainder of the ROS was reviewed and is negative. LAB Creatinine Date Value Ref Range Status 02/24/2022 0.71 1.5 MG/DL Final PSA Date Value 02/24/2022 4.77 11/20/2020 6.50 ng/mL 09/07/2019 4.7 08/07/2019 4.49 02/04/2019 4.83 07/07/2018 4.39 11/06/2015 3.11 11/05/2014 3.18 10/05/2013 3.16 10/05/2013 3.16 GLUCOSE UA (POCT) Negative 11/19/2020 BILIRUBIN UA (POCT) Negative 11/19/2020 KETONE UA (POCT) Negative 11/19/2020 SPECIFIC GRAVITY UA (POCT) >=1.030 11/19/2020 HEMOGLOBIN/BLOOD UA (POCT) Trace-intact 11/19/2020 PH UA (POCT) 6.5 11/19/2020 PROTEIN UA (POCT) Negative 11/19/2020 UROBILINOGEN UA (POCT) 0.2 11/19/2020 NITRITE UA (POCT) Negative 11/19/2020 LEUKOCYTES UA (POCT) Negative 11/19/2020 COLOR UA (POCT) Yellow 11/19/2020 CLARITY UA (POCT) Clear 11/19/2020 MEDICATIONS meloxicam (MOBIC) 15 mg tablet, Take 15 mg by mouth once daily. levothyroxine (SYNTHROID) 25 mcg tablet, Take 1 tablet by mouth daily before breakfast. sildenafil (REVATIO) 20 mg tablet, Take 20-40 mg by mouth as needed (30 minutes before if needed for ED). cyanocobalamin (VITAMIN B-12) 1,000 mcg Tab, Take 1 tablet by mouth once daily. Cholecalciferol, Vitamin D3, 1,000 unit ORAL Cap, Take 1 capsule by mouth once daily. ASPIRIN 81 MG TAB, Take one (1) tablet daily . VITAMIN C 500 MG TAB, Take one(1) tablet daily. THERAPEUTIC MULTIVITAMIN TAB, Take one(1) tablet daily. HISTORIES PAST MEDICAL HISTORY Diagnosis Date ED (erectile dysfunction) 12/31/2014 Generalized osteoarthrosis, unspecified site HLD (hyperlipidemia) 11/12/2013 Hypothyroid 11/12/2013 TSH 2.75 - T4 7.3 - [facility] 02/11/2014 Irritable bowel syndrome Stress and adjustment reaction 12/31/2014 PAST SURGICAL HISTORY Procedure Laterality Date COLONOSCOPY 07/18/2016 COLONOSCOPY FLX DX W/COLLJ SPEC WHEN PFRMD 07/10/2006 Colonoscopy EXCISION AXILLARY LYMPH NODE Left 1973 benign PAST SURGICAL HISTORY OF Left 02/2008 cyst left middle finger, thumb RMVL SEC MEMBRANOUS CTRC CORNEO-SCLL SCTJ 06/2009 Cataract removal, left RPR 1ST INGUN HRNA AGE 7 MO-5 YRS REDUCIBLE 1953 SEPTOPLASTY/SUBMUCOUS RESECJ W/WO CARTILAGE GRF 07/2007 Septoplasty FAMILY HISTORY Problem Relation Age of Onset Hypertension Mother Coronary Artery Disease Mother Hypertension Father Heart Father Prostate Cancer Father other (Other) Brother Lyme SOCIAL HISTORY Social History Tobacco Use Smoking status: Never Smoker Smokeless tobacco: Never Used Substance Use Topics Alcohol use: No Drug use: No BP 124/76 Pulse (!) 45 SpO2 96% Physical Exam Vitals and nursing note reviewed. Constitutional: Appearance: He is well-developed. HENT: Head: Normocephalic. Pulmonary: Effort: Pulmonary effort is normal. Genitourinary: Comments: Prostate 40 to 50 g no nodules Skin: General: Skin is warm and dry. Neurological: Mental Status: He is alert and oriented to person, place, and time. Psychiatric: Behavior: Behavior normal. Thought Content: Thought content normal. Judgment: Judgment normal. IMAGING ASSESSMENT/PLAN: 1. Elevated prostate specific antigen (PSA) - ICD9: 790.93, ICD10: R97.20 (primary diagnosis) - US MSR POST-VOID RESID URINE 2. Screening PSA (prostate specific antigen) - ICD9: V76.44, ICD10: Z12.5 - PSA/PROSTSPECAG SCRN Overall doing well. Reviewed PSA. 1 spurious value last year otherwise remained stable. Continue with PSA annually. Follow-up with me in a year. Consider saw aiden for his urinary tract symptoms. Does not want tamsulosin at this time. Gilles Calzada Medical Decision Making: Problems: Moderate: 2+ stable chronic illnesses Data: Unique test result(s) reviewed: 1 Unique test(s) ordered: 1 Medical Decision Making Level: 3 - Low This note was partially created using voice recognition software and is inherently subject to errors including those of syntax and sound-alike substitutions which may escape proofreading. In such instances, original meaning may be extrapolated by contextual derivation. documented in this encounter [facility] 02-24-2022 Miscellaneous Notes Patient advised, and agreed. Gracy Gates Cma signed Patient calling again. Claire can you please file order. Patient is trying to go to lab today if possible. Thank you. Gracy Gates Cma Patient requesting to have PSA drawn. Please file order. Please fax orders to [phone] Attention Marie Thank you, Gracy Gates Cma documented in this encounter [facility] documented as of this encounter (statuses as of 02/24/2022) [facility]05-27-2015 History of Past illness Narrative* Problem Noted Date Resolved Date Stress and adjustment reaction 12/31/2014 0 12/15/2016 Screening for malignant neoplasm of the rectum 0 11/12/2013 12/15/2016 Hyperthyroidism 11/12/2013 11/12/2013 HLD (hyperlipidemia) 11/12/2013 12/15/2016 documented as of this encounter (statuses as of 02/25/2022) [facility] History of Past illness Narrative* Problem Noted Date Resolved Date Stress and adjustment reaction 12/31/2014 0 12/15/2016 Screening for malignant neoplasm of the rectum 0 11/12/2013 12/15/2016 Hyperthyroidism 11/12/2013 11/12/2013 HLD (hyperlipidemia) 11/12/2013 12/15/2016 documented as of this encounter (statuses as of 03/01/2022) [facility] History of Past illness Narrative* Problem Noted Date Diagnosed Date Resolved Date Stress and adjustment reaction 12/31/2014 12/15/2016 Screening for malignant neop lasm of the rectum 11/12/2013 12/15/2016 Hyperthyroidism 11/12/2013 11/12/2013 HLD (hyperlipidemia) 11/12/2013 017 documented as of this encounter (statuses as of 03/02/2023) [facility] Diagnosis Elevated prostate specific antigen (PSA)- Primary documented in this encounter [facility]* Diagnosis Elevated prostate specific antigen (PSA)- Primary Screening PSA (prostate specific antigen) Special screening for malignant neoplasm of prostate documented [facility] this encounter [facility] Diagnosis Elevated prostate specific antigen (PSA)- Primary Screening PSA (prostate specific antigen) Special screening for malignant neoplasm of prostate Family history of prostate cancer in father ED (erectile dysfunction) of organic origin Impotence of organic origin documented in this encounter [facility] Advance Directives No Advanced Directives Records FoundDocuments on File Type Date Recorded 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 Advance Directive(s) 07/18/2016 8:49 AM Advance Directive(s) 07/18/2016 7:18 AM Advance Directive(s) 07/12/2016 10:26 AM Documents on File Type Date Recorded 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 Advance Directive(s) 07/18/2016 7:18 AM Summary Purpose Family History No Family History Records FoundNo Family History Records Found Additional Source Comments Source Comments (unrecognize d section and content) In the event this informatio n is protected by the Federal Confidentiality of Alcohol and Drug Abuse Patient Records regulations: The Federal rules restrict any use of the information to criminally investigate or prosecute any alcohol or drug abuse patient.[facility] event this information is protected by the Federal Confidentiality of Alcohol and Drug Abuse Patient Records regulations: The Federal rules restrict any use of the information to criminally investigate or prosecute any alcohol or drug abuse patient.[facility] the event this information is protected by the Federal Confidentiality of Alcohol and Drug Abuse Patient Records regulations: The Federal rules restrict any use of the information to criminally investigate or prosecute any alcohol or drug abuse patient.[facility] the event this information is protected by the Federal Confidentiality of Alcohol and Drug Abuse Patient Records regulations: The Federal rules restrict any use of the information to criminally investigate or prosecute any alcohol or drug abuse patient.[facility] Reason for Visit (unrecogniz ed section and content) Reason Comments Elevated PSA Care Teams (unrecognized sec tion and content) Alcohol Still Operator Relationship Specialty Start Date End Date Deanna Leonard [address] [facility] [address] [place], [place] [id number] PCP - General Family Practice 10/22/20 Alcohol Still Operator Relationship Specialty Start Date End Date Deanna Leonard [address] [facility] [address] [place], [place] [id number] PCP - General Family Medicine 10/22/20 (unrecognized sect ion and content) No Status Records FoundNo Status Records Found INFORMATION SOURCE (unrecogn ized section and content) DATE CREATED AUTHOR AUTHOR'S DELISAJG ATION 03/03/2023 [facility] FOR RECORDS PERTAINING TO PATIENTS WHO ARE OR HAVE BEEN ENROLLED IN A CHEMICAL DEPENDENCY/SUBSTANCEABUSE PROGRAM, SOME INFORMATION MAY BE OMITTED. This clinical summary was aggregated from multiple sources. Caution should be exercised in using it in the provision of clinical care. This summary normalizes information from multiple sources, and as a consequence, information in this document may materially change the coding, format and clinical context of patient data. In addition, data may be omitted in some cases. CLINICAL DECISIONS SHOULD BE BASED ON THE PRIMARY CLINICAL RECORDS. [facility]. provides no warranty or guarantee of the accuracy or completeness of information in this document.
== END | disposition home or self-care (01) ==
LOC: MTRAD 13:57
PROVIDERS: PCP Family Medicine; Referring Provider Family Medicine; Visit Provider Family Medicine
DX: J20.9 Acute bronchitis, unspecified (principal)
CPT/HCPCS: 71046

== ENCOUNTER → 2023-12-27 | Outpatient (CLI) | payer MEDICARE, OTHER, SELFPAY ==
[2023-12-27 10:22] LABS: Absolute Lymphocyte Count 1.34 X10^3/uL (0.83-4.51); Absolute Neutrophil Count 3.5 X10^3/uL (2.0-7.7); Basophil# 0.02 X10^3/uL; Basophil% 0.3 % (0-1); Eosinophil# 0.41 X10^3/uL; Eosinophils% 7.1 % (0-5); Hematocrit 48.1 % (40-54); Hemoglobin 16.4 g/dL (13.0-16.5); Lymphocyte # 1.34 X10^3/ul (0.83-4.51); Lymphocyte % 23.2 % (19-41); Mean Corp Hgb Conc 34.1 g/dL (32-36); Mean Corpuscular Volume 93.9 fL (80-94); Mean Platelet Vol. 10.5 fl (6.2-12.0); Monocyte# 0.45 X10^3/uL; Monocyte% 7.8 % (0-10); NRBC Flagged by Analyzer 0 % (0-5); Neutrophil # 3.53 X10^3/uL (2.7-7.7); Neutrophil % 61.3 % (47-70); Platelet Count 158 K/mm3 (150-450); RBC Distribution Width CV 13.6 % (11.6-14.6); RBC Distribution Width SD 46.6 fl (35.1-43.9); Red Blood Count 5.12 M/mm3 (4.6-6.2); White Blood Count 5.8 K/mm3 (4.4-11.0)
[2023-12-27 11:38] LABS: AST(SGOT) 23 U/L (15-37); Alanine Aminotransfer ALT/SGPT 44 U/L (16-61); Albumin, Serum 3.6 g/dL (3.2-5.0); Alkaline Phosphatase 58 U/L (45-117); Anion Gap 7 (5-15); BUN 31 mg/dL (7-18); BUN/Creat Ratio 40.8 RATIO (10-20); Calcium,Total 8.8 mg/dL (8.5-10.1); Chloride 111 mmol/L (98-107); Cholesterol 200 mg/dL (200); Creatinine, Serum 0.76 mg/dL (0.70-1.30); EST Glomerular Filtration Rate 107 mL/min (>60); Est Glom Filt Rate - Afr Amer 130 mL/min (>60); Globulin 3.5 g/dL (2.2-4.2); Glucose 109 mg/dL (74-106); High Density Lipoprotein 59 mg/dL; Potassium 4.1 mmol/L (3.5-5.1); Protein, Total 7.1 g/dL (6.4-8.2); Sodium Level 139 mmol/L (136-145); Triglycerides 52 mg/dL; Very Low Density Lipoprotein 10 mg/dL (5-40)
[2023-12-27 11:58] LABS: Vitamin B12 1361 pg/mL (211-911)
[2023-12-27 15:40] LABS: Hemoglobin A1c 5.3 % (3.8-5.6)
== END | disposition home or self-care (01) ==
PROVIDERS: PCP Family Medicine; Visit Provider Family Medicine
DX: Z00.00 Encounter for general adult medical examination without abnormal findings (principal); E53.9 Vitamin B deficiency, unspecified; E55.9 Vitamin D deficiency, unspecified; R73.09 Other abnormal glucose
CPT/HCPCS: 36415; 80053; 80061; 82306; 82607; 83036; 85025

== ENCOUNTER → 2023-12-28 | Outpatient (CLI) | payer MEDICARE, OTHER, SELFPAY ==
--- NOTE | 2023-12-28 09:28 | RAD_ITS ---
STUDY: X-RAY - RIGHT HAND REASON FOR EXAM: Male, 73 years old. Pain. TECHNIQUE: 3 view(s) of the hand. COMPARISON: None. FINDINGS: Osteopenia. Moderate arthrosis of the radiocarpal articulation. Moderate arthrosis of the distal radioulnar joint. Moderate arthrosis of the radial carpal row of the wrist. Cystic changes in the scaphoid and trapezium. Moderate arthrosis of the first CMC joint. Moderate arthrosis of the MCP and IP joints, most marked at the third MCP joint. Diffuse soft tissue swelling. RAD/Hand Min 3 Views IMPRESSION: Osteopenia with osteoarthritic changes as described. No acute abnormality or erosive changes. Electronically Signed: Munir Corral MD at 11:58 EDT ,
--- NOTE | 2023-12-28 09:32 | RAD_ITS ---
STUDY: X-RAY - LEFT HAND REASON FOR EXAM: Male, 73 years old. Hand pain. TECHNIQUE: 3 view(s) of the hand. COMPARISON: None. FINDINGS: Osteopenia. Normal radiocarpal articulation. Normal distal radioulnar joint. Mild arthrosis of the radial carpal row of the wrist. Mild arthrosis of the first CMC joint. Moderate arthrosis of the MCP and IP joints most marked at the third MCP joint. Normal soft tissues. RAD/Hand Min 3 Views IMPRESSION: Osteopenia with osteoarthritic changes as described. Electronically Signed: Munir Corral MD at 13:34 EDT ,
[2023-12-28 12:50] LABS: Bilirubin, Direct 0.17 mg/dL (0.00-0.30)
== END | disposition home or self-care (01) ==
LOC: MTLAB 09:28
PROVIDERS: PCP Family Medicine; Referring Provider Family Medicine; Visit Provider Family Medicine
DX: E80.6 Other disorders of bilirubin metabolism (principal); M19.041 Primary osteoarthritis, right hand; M19.042 Primary osteoarthritis, left hand
CPT/HCPCS: 36415; 73130; 82247; 82248

== ENCOUNTER → 2024-03-06 | Outpatient (CLI) | payer OTHER, MEDICARE, SELFPAY ==
--- NOTE | 2024-03-06 09:46 | RAD_ITS ---
STUDY: X-RAY - RIGHT FOOT CLINICAL: Male, 73 years old. pain TECHNIQUE: 3 view(s) of the foot. COMPARISON: None. FINDINGS: Normal talus, calcaneus, and tarsal bones. Normal visualized subtalar, talonavicular, calcaneocuboid, tarsal and tarsometatarsal articulations. Normal metatarsi. There is degenerative arthrosis of the metatarsophalangeal joint of the hallux . Normal tibial and fibular sesamoid bones. Normal interphalangeal joint of the great toe. Normal phalanges of the great toe. Normal second through fifth metatarsophalangeal joints. Normal interphalangeal joints and phalanges of the lesser toes. The soft tissue structures are unremarkable. RAD/Foot min 3 Views IMPRESSION: Mild first metatarsophalangeal joint arthrosis. Electronically Signed: Alexis Conley MD at 10:06 EDT ,
== END | disposition home or self-care (01) ==
LOC: MTRAD 09:46
PROVIDERS: PCP Family Medicine; Referring Provider Family Medicine; Visit Provider Family Medicine
DX: M79.671 Pain in right foot (principal)
CPT/HCPCS: 73630

== ENCOUNTER → 2025-06-25 | Outpatient (CLI) | payer OTHER, MEDICARE, SELFPAY ==
[2025-06-25 12:19] LABS: Hematocrit 45.1 % (40-54); Hemoglobin 15.5 g/dL (13.0-16.5); Immature Granulocytes Count 0.020 X10^3/uL (0.0-0.0); Mean Corp Hgb Conc 34.4 g/dL (32-36); Mean Corpuscular Volume 93.4 fL (80-94); Mean Platelet Vol. 10.6 fl (6.2-12.0); NRBC Flagged by Analyzer 0 % (0-5); Platelet Count 161 K/mm3 (150-450); RBC Distribution Width CV 13.5 % (11.6-14.6); RBC Distribution Width SD 46.3 fl (35.1-43.9); Red Blood Count 4.83 M/mm3 (4.6-6.2); White Blood Count 6.2 K/mm3 (4.4-11.0)
[2025-06-25 13:00] LABS: AST(SGOT) 22 U/L (<=37); Alanine Aminotransfer ALT/SGPT 34 U/L (<=46); Albumin, Serum 3.9 g/dL (3.4-4.8); Alkaline Phosphatase 48 U/L (40-129); Anion Gap 9 (5-15); BUN 25 mg/dL (4-19); BUN/Creat Ratio 36.4 RATIO (10-20); Calcium,Total 8.6 mg/dL (7.6-11.0); Carbon Dioxide 21.3 mmol/L (21.0-32.0); Chloride 110 mmol/L (98-108); Globulin 2.7 g/dL (2.2-4.2); Glucose 116 mg/dL (70-99); Potassium 4.5 mmol/L (3.3-5.1); Vitamin B12 1248 pg/mL (180-914); Vitamin D,25 Hydroxy 46.3 ng/mL (30-100)
[2025-07-02 10:08] LABS: VITAMIN B6 45.0 ug/L (3.4-65.2); Vitamin B1, Thiamine 120.1 nmol/L (66.5-200.0)
== END | disposition home or self-care (01) ==
LOC: MFPLAB 11:06
PROVIDERS: PCP Family Medicine; Visit Provider Family Medicine
DX: R73.09 Other abnormal glucose (principal); E53.9 Vitamin B deficiency, unspecified; E55.9 Vitamin D deficiency, unspecified
CPT/HCPCS: 36415; 80053; 82306; 82607; 83036; 84207; 84425; 85025